=== PATIENT | male | born 2005 | race Two or more races ===

== ENCOUNTER 2023-08-04 15:07 | Emergency (ER) | payer OTHER ==
[2023-08-04 15:21] VITALS: BP 132/87; O2SAT 93
--- NOTE | 2023-08-04 15:29 | ED Physician Documentation ---
PD HPI URI - Stated complaint Stated Complaint: CONGESTION,COUGH,SOA - Chief complaint Chief Complaint: General - History obtained from History obtained from: Patient - History of Present Illness Timing - onset: How many days ago (5-6) Timing duration: Days (5-6 days of URI and cough illness that is improving to some congestion and mild cough but no fevers, aches still. Needs note to be able to return to work. 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.) Associated symptoms: Fever (improved), Chills Contributing factors: No: COPD / asthma PD PAST MEDICAL HISTORY - Past Medical History Past Medical History: Yes Cardiovascular: None Respiratory: Asthma Neuro: None Endocrine/Autoimmune: None GI: None : None HEENT: None Psych: None Musculoskeletal: None Derm: None - Past Surgical History Past Surgical History: No - Present Medications Home Medications: Ambulatory Orders Medication Instructions Recorded Confirmed No Known Home Medications 08/04/23 08/04/23 - Allergies Allergies/Adverse Reactions: Allergies Allergy/AdvReac Type Severity Reaction Status Date / Time No Known Drug Allergies Allergy Verified 08/04/23 15:13 - Social History Does the pt smoke?: No Smoking Status: Never smoker Does the pt drink ETOH?: No Does the pt have substance abuse?: No - Immunizations Immunizations are current?: No Immunizations: Other immun not current PD ED PE NORMAL - Vitals Vital signs reviewed: Yes - General General: Alert and oriented X 3, No acute distress, Well developed/nourished - HEENT HEENT: Ears normal, Moist mucous membranes, Pharynx benign - Neck Neck: Supple, no meningeal sign, No adenopathy - Cardiac Cardiac: RRR, No murmur - Respiratory Respiratory: Clear bilaterally - Derm Derm: Normal color, Warm and dry - Neuro Neuro: Alert and oriented X 3, Normal speech Results - Vitals Vitals: Vital Signs - 24 hr 08/04/23 15:15 Temperature 36.7 C Heart Rate 96 Respiratory 16 Rate Blood Pressure 132/87 H O2 Saturation 93 Oxygen O2 Source Room air PD Medical Decision Making - ED course Complexity details: considered differential (he had URI symptoms onset 5-6 days ago and is felling better without fever, body aches. Still some congestion and decreasing cough. Needs note to return to work. He does sound improving enough to not be infectious still. Home COVID negative so some other virus. Will need to go clinically, not test.), d/w patient Departure - Departure Disposition: 01 Home, Self Care Clinical Impression: Upper respiratory infection Condition: Stable Record reviewed to determine appropriate education?: Yes Comments: It does sound like you are improving well enough to be able to return to work. You do have a touch of wheezing and he may benefit from using your albuterol in haler 2 puffs 2-3 times daily regularly for the next several days to week. Otherwise you will likely have some congestion and mild cough for couple weeks still as residual irritation. Forms: PCP List, Activity restrictions Discharge Date/Time: 08/04/23 16:17
--- NOTE | 2023-08-04 16:15 | XRAY Report ---
PROCEDURE: Chest 2 View X-Ray INDICATIONS: cough TECHNIQUE: 2 views of the chest were acquired. COMPARISON: None. FINDINGS: Surgical changes and devices: None. Lungs and pleura: No pleural effusions or pneumothorax. Lungs are clear. Mediastinum: Mediastinal contours appear normal. Heart size is normal. Bones and chest wall: No suspicious bony lesions. Overlying soft tissues appear unremarkable. IMPRESSION: No acute process. Reviewed by: Dania Carrero MD on 08/04/2023 4:14 PM PDT Approved by: Dania Carrero MD on 08/04/2023 4:14 PM PDT Station ID: [id number]
== END 2023-08-04 16:17 | disposition home or self-care (01) ==
LOC: ED 15:07
DX: J06.9 Acute upper respiratory infection, unspecified (principal)
CPT/HCPCS: 99283